=== PATIENT | male | born 1995 | race American Indian/Alaskan Native ===

== ENCOUNTER 2021-12-18 19:06 | Emergency (ER) | payer OTHER ==
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
[2021-12-18 21:00] VITALS: BP 130/81
[2021-12-18] MEDS ORDERED: TETANUS,DIPH,PERTUSS(ACELL) VACCINE 0.5 ML SYRINGE IM ONE (21:31)
== END 2021-12-18 22:00 ==
LOC: ED 19:06
DX: S60.511A Abrasion of right hand, initial encounter (principal); S80.812A Abrasion, left lower leg, initial encounter; K05.6 Periodontal disease, unspecified; X58.XXXA Exposure to other specified factors, initial encounter; Y93.89 Activity, other specified; Y92.89 Other specified places as the place of occurrence of the external cause; Y99.8 Other external cause status
CPT/HCPCS: 99282